=== PATIENT | male | born 1990 | race Caucasian/White ===

== ENCOUNTER 2024-03-26 12:09 | Day surgery (SDC) | payer OTHER, SELFPAY ==
[2024-03-20 09:15] VITALS: BMI 33.5
[2024-03-26 13:35] VITALS: BP 100/60; PULSE 72; RESP 16; TEMP 36.8; O2SAT 98; BMI 33.5
[2024-03-26] MEDS: OXYMETAZOLINE NASAL SPRAY 30 ML 2 SPRAYS NASAL ×2 (13:47→14:59)
[2024-03-26] MEDS: ACETAMINOPHEN 325 MG TABLET 975 MG PO (13:47)
[2024-03-26] MEDS: LACTATED RINGERS 1,000 ML 80 ML IV (13:52)
--- NOTE | 2024-03-26 14:09 | P.HP_ITS ---
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 He continues nasal CPAP, no interval health changes. Following discussion of the material risks benefits complications and alternatives, he elected to proceed. [facility] Medical History Nasal septal deviation RADHA on CPAP Social History household members: spouse Smoking Status: Never smoker Meds Home Medications and Allergies Home Medications Medication Instructions Recorded Confirmed Type azelastine 137 mcg (0.1 %) nasal 2 spray intranasal BID 03/20/24 03/20/24 History spray Allergies Allergy/AdvReac Type Severity Reaction Status Date / Time No Known Drug Allergies Allergy Verified 03/26/24 13:41 Review of Systems Review of Systems Narrative: Negative except as listed in the HPI Exam Vital Signs (past 8 hours): - 03/26/24 13:35 Temperature 98.2 F Pulse Rate 72 Respiratory Rate 16 Blood Pressure 100/60 Pulse Oximetry 98 Oxygen Delivery Method Room Air Oxygen Delivery Method Room Air Narrative Exam Narrative: Well-developed well-nourished, heart regular rate and rhythm without murmur, lungs clear to auscultation bilaterally Assessment & Plan Assessment & Plan narrative: Assessment: Nasal airway obstruction, septal deviation, inferior turbinate hypertrophy, beau bullosa, RADHA Plan: Following discussion of the material risks benefits complications and alternatives, the patient elected to proceed. Time-Based Coding :: [TOTAL MINUTES] spent with patient and on the chart (including review of chart, obtaining history, exam, reviewing outside data, placing orders, documenting exam and treatment plan, and counseling patient) on [DATE].
--- NOTE | 2024-03-26 14:09 | PM.PREOP ---
Pre-operative Note Interval Note History & Physical reviewed/Exam performed by Physician: Yes Changes to H&P: No
--- NOTE | 2024-03-26 14:11 | PM.OP.1 ---
Operative Date/Time/Diagnoses Date of procedure: 03/26/24 Time of procedure: 16:04 Pre-op diagnosis: Nasal airway obstruction, septal deviation, inferior turbinate hypertrophy, right beau bullosa, RADHA Post-op diagnosis: same Procedure & Clinicians Procedure: 1. Septoplasty 2. Right endoscopic beau bullosa resection 3. Bilateral inferior turbinate reduction via intramural cautery Same procedure as scheduled: Yes Indications: 34 Year old with the above diagnoses incompletely managed with medical therapy presents for the above procedure. Following discussion of the material risks benefits complications and alternatives, the patient elected to proceed. Surgeon: Robbin Patel Click Yes if Unassisted: Yes Anesthesia Type: General and Local Operative Notes Findings: 2+ RIGHT primarily anterior septal deviation, LEFT low spur, thick bone overall, [id number]-right inferior and middle turbinate hypertrophy, small RIGHT beau bullosa, LEFT middle turbinate slightly reduced with surface suction cautery. Estimated Blood Loss (mL): 150 Procedure in detail: Following identification and confirmation of consent as well as preoperative Afrin nasal spray, the patient was brought to the operating room suite and placed in the supine position. General endotracheal anesthesia was administered. I infiltrated the septum widely bilaterally with 1% lidocaine 1 100,000 epinephrine followed by temporary packing with cotton with Afrin and 4% lidocaine. Following sterile prep and drape, the packing was removed and I performed a right mathew-transfixion incision, elevated the right mucoperichondrial and mucoperiosteal flap. I disarticulated near the bony/cartilaginous junction and elevated the left mucoperiosteal flap. Deviated portions of the perpendicular plate of the ethmoid and vomer were resected. The residual quadrilateral cartilage was further straightened by trimming it inferiorly as well as reducing the maxillary crest. A 2 mm strip of cartilage paralleling the residual 1 cm dorsal and caudal strut was resected to further straighten the quadrilateral cartilage. The hemitransfixion incision was closed with interrupted 5 0 chromic followed by a running 4 0 plain gut mattress suture to reapproximate the septal flaps. The head of each inferior turbinate had been previously infiltrated with additional local anesthetic and a 25 gauge spinal needle was used to impale the length of the turbinate, with cautery on a setting of 15 activated on slow withdrawal over 2 passes each side. The turbinates were then outfractured. Under endoscopic guidance the posterior and anterior superior insertion of the right middle turbinate was then infiltrated with additional local anesthetic via spinal needle. Cotton pledgets with 1 1000 epinephrine were placed in the middle meatus for several minutes. The middle turbinate was slightly medialized and the lateral portion of the middle turbinate in the area of the beau bullosa was resected with through cutting instruments and the microdebrider. Suction cautery was utilized on the turbinate wound edges, especially the area of blood supply inferiorly. At case completion, Mckeon air channel silastic splints were placed bilaterally, sutured anteriorly with a single 4 0 nylon. The procedure completed, sponge and needle counts were correct and the patient was extubated in the operating room and taken to recovery room in stable condition without known complication. Complications: none Post-operative Condition: stable Disposition: same day surgery Plan for aftercare: Nasal saline every hour while awake, begin irrigations t.i.d. tomorrow if desired. Polysporin to the nostrils at all times, Tylenol alternating with Advil for pain control, oxycodone for breakthrough pain. Elevate head of bed, no nose blowing, no straining for 2 weeks. Ice directly under the nose on the upper lip has tolerated 24-48 hours at a minimum. Follow-up in 1 week for nasal splint removal.
--- NOTE | 2024-03-26 14:52 | SUR.OPER ---
Supine on padded OR bed, head on pillow, arms secured on padded arm boards at <90 degrees abduction, legs uncrossed, safety belt at thigh, tape over blanket over lower legs.
[2024-03-26] MEDS: EPINEPHrine 1 MG/ML 3 MG TOP (15:00)
[2024-03-26] MEDS: LIDOCAINE 1% W/EPI 20ML 20 ML INJ (15:02)
[2024-03-26] MEDS: LIDOCAINE 4% SOLN 50 ML 20 ML TOP (15:02)
[2024-03-26 16:10] VITALS: BP 141/88; PULSE 99; RESP 12; TEMP 36.7; O2SAT 98
[2024-03-26 16:14] VITALS: BP 143/94; PULSE 98; RESP 20; O2SAT 97
[2024-03-26 16:20] VITALS: BP 122/83; PULSE 99; RESP 12; O2SAT 94
[2024-03-26 16:25] VITALS: BP 114/79; PULSE 100; RESP 14; O2SAT 92
[2024-03-26 16:32] VITALS: BP 112/66; PULSE 103; RESP 12; TEMP 36.2; O2SAT 96
== END 2024-03-26 16:44 | disposition home or self-care (01) ==
PROVIDERS: Referring Provider Otolaryngology; Visit Provider Otolaryngology
PROC: 09QM4ZZ Repair Nasal Septum, Percutaneous Endoscopic Approach (ICD-10-PCS; CPT 30520; principal; 2024-03-26 13:30)
DX: J34.2 Deviated nasal septum (principal); J34.89 Other specified disorders of nose and nasal sinuses; J34.3 Hypertrophy of nasal turbinates; G47.33 Obstructive sleep apnea (adult) (pediatric)
CPT/HCPCS: 30520; 30802; 31240; J0171; J1100; J1171; J2405; J2704; J3010